=== PATIENT | male | born 1955 | race Caucasian/White ===

== ENCOUNTER 2018-09-21 14:05 | Emergency (ER) | payer MEDICAID ==
[~2018-09-21] VITALS: Wt 65.9 kg
[2018-09-21] MEDS ORDERED: SOD CHLORIDE 0.9% 1,000 ML IV STA (14:17)
[2018-09-21] MEDS ORDERED: ONDANSETRON 4 MG INJ IV STA (14:17)
[2018-09-21] MEDS ORDERED: IPRATROPIUM (NEB) 0.5 MG/2.5 ML AMP NEB STA (15:24)
[2018-09-21] MEDS ORDERED: ALBUTEROL 0.5% (NEB) 2.5 MG/0.5 ML AMP NEB STA (15:24)
[2018-09-21 17:50] VITALS: BP 125/86; PULSE 65; RESP 16
--- NOTE | 2018-09-21 18:04 | ERD ---
ER Documentation Chief Complaint Chief Complaint syncope at home s/p 2 teeth extractions HPI This is a 62-year-old male that presented to the emergency department after he had a brief transient loss of consciousness while standing just prior to arrival. This lasted for roughly 2 seconds and the patient had complete spontaneous recovery. He did hit his head on a carpeted surface during the syncope episode. The patient denies any shortness of breath. The patient had a procedure earlier today with extraction of 2 molars on the upper right side. He had underwent a significant amount of sedation but states he has not eaten for over 24 hours. He denies any chest pain. He denies a headache. He denies any neck pain. He has no shortness of breath at rest or exertion. He denies any recent travel or prolonged immobilization. ROS All systems reviewed and are negative except as per history of present illness. Allergies Allergies: Coded Allergies: No Known Allergy (Unverified , 09/21/18) PMhx/Soc Medical and Surgical Hx: pt denies Medical Hx, pt denies Surgical Hx History of Surgery: No Anesthesia Reaction: No Hx Neurological Disorder: No Hx Respiratory Disorders: No Hx Cardiac Disorders: No Hx Psychiatric Problems: No Hx Miscellaneous Medical Probl: No Hx Alcohol Use: No Hx Substance Use: No Hx Tobacco Use: No Smoking Status: Never smoker Physical Exam Vitals Vital Signs Date Temp Pulse Resp B/P (MAP) Pulse Ox O2 O2 Flow FiO2 Time Delivery Rate 09/21/18 57 16 124/75 100 Room Air 14:39 (91) 09/21/18 71/51 (58) 14:22 90/69 (76) 09/21/18 96.4 56 20 71/51 (58) 99 14:12 Physical Exam Constitutional:Well-developed. Well-nourished. HEENT:Normocephalic. Atraumatic.no nasal septal hematoma. No hemotympanum. Pupils were equal round reactive to light. Very dry mucous membranes.No tonsill ar exudates. Blood clot present in the right upper molar region from previous extraction of tooth #1 and 2. No blood present within the posterior pharynx. No trismus. Neck: No nuchal rigidity. No lymphadenopathy. No posterior cervical spine tenderness or step-offs. Respiratory: Not using accessory muscles of respiration.Lungs were clear to auscultation bilaterally. No rhonchi. No rales. No wheezing. Cardiovascular: Regular rate regular rhythm.No murmurs. No rubs were appreciated.S1, S2 normal. Distal pulses are palpable 2+ bilaterally. GI: Abdomen was soft. Nontender. Non Distended. No pulsatile abdominal masses or bruits. No rebound. No guarding. Bowel sounds were present and normal. Muscle skeletal: Full range of motion of both the upper and lower extremities bilaterally.Normal muscle tone.No assymetrical calf tenderness or swelling. Skin: No petechia, no purpura. No lesions on the palms or the soles of the feet. No maculopapular rash. NEURO: Patient was alert, awake, orientated x3.No facial droop. Gait observed and normal with no ataxia.Speech had regular rate and rhythm. No focal neurological deficits. Result Diagram: 09/21/18 1417 09/21/18 1417 Results 24 hrs Laboratory Tests Test 09/21/18 14:17 White Blood Count 13.4 10^3/ul Red Blood Count 4.18 10^6/ul Hemoglobin 12.0 g/dl Hematocrit 36.0 % Mean Corpuscular Volume 86.1 fl Mean Corpuscular Hemoglobin 28.7 pg Mean Corpuscular Hemoglobin Concent 33.3 g/dl Red Cell Distribution Width 13.2 % Platelet Count 278 10^3/UL Mean Platelet Volume 9.3 fl Immature Granulocytes % 0.300 % Neutrophils % 50.9 % Lymphocytes % 35.1 % Monocytes % 6.7 % Eosinophils % 6.4 % Basophils % 0.6 % Nucleated Red Blood Cells % 0.0 /100WBC Immature Granulocytes # 0.040 10^3/ul Neutrophils # 6.8 10^3/ul Lymphocytes # 4.7 10^3/ul Monocytes # 0.9 10^3/ul Eosinophils # 0.9 10^3/ul Basophils # 0.1 10^3/ul Nucleated Red Blood Cells # 0.0 10^3/ul Prothrombin Time 13.2 Sec Prothrombin Time Ratio 1.0 INR International Normalized Ratio 0.99 Activated Partial Thromboplast Time 21.9 Sec Sodium Level 140 mmol/L Potassium Level 3.6 mmol/L Chloride Level 106 mmol/L Carbon Dioxide Level 25 mmol/L Anion Gap 9 Blood Urea Nitrogen 13 mg/dl Creatinine 1.03 mg/dl Est Glomerular Filtrat Rate mL/min > 60 mL/min Glucose Level 190 mg/dl Calcium Level 9.0 mg/dl Total Bilirubin 0.3 mg/dl Direct Bilirubin 0.00 mg/dl Indirect Bilirubin 0.3 mg/dl Aspartate Amino Transf (AST/SGOT) 18 IU/L Alanine Aminotransferase (ALT/SGPT) 18 IU/L Alkaline Phosphatase 82 IU/L Troponin I < 0.012 ng/ml Total Protein 6.8 g/dl Albumin 3.8 g/dl Globulin 3.00 g/dl Albumin/Globulin Ratio 1.26 Current Medications Medications Dose Sig/Christin Start Time Status Last (Trade) Ordered Route PRN Stop Time Admin Dose Reason Admin Sodium 1,000 ml @ Q1H STAT 09/21/18 DC 09/21/18 Chloride 1,000 mls/hr IV 14:17 14:38 09/21/18 15:16 Ondansetron 4 mg ONCE STAT 09/21/18 DC 09/21/18 HCl (Zofran IV 14:17 14:37 Inj) 09/21/18 14:19 Albuterol 10 mg ONCE STAT 09/21/18 DC (Proventil NEB 15:24 0.5% (Neb)) 09/21/18 17:59 Ipratropium 0.5 mg ONCE STAT 09/21/18 DC Jasper NEB 15:24 (Atrovent 09/21/18 17:59 0.02% (Neb)) Procedures/MDM The patient presented to the emergency department with a transient loss of consciousness with loss of postural tone, suggestive of a syncope episode. The differential diagnosis of syncope is vast but my workup considered common benign disorders to life-threatening processes. Therefore my differential diagnosis included but was not limited to reflex-mediated syncope such as vasovagal or carotid sinus syncope from coughing, sneezing, micturition, or GI stimulation (eg, defecation). Other etiologies in my workup included orthostatic hypotension which could cause syncope from an abrupt drop in venous return to heart from volume depletion. An EKG and cardiac enzymes were obtained to rule out cardiac arrhythmias or ischemia. Cardiopulmonary disease such as valvular disease, hypertrophic cardiomyopathy, pericardial tamponade, or pulmonary embolism were considered as a factor causing the patients syncope episode. The patient had no difference in blood pressure in both arms that could suggest aortic dissection or subclavian steal syndrome. Rectal exam was negative for fecal occult blood that could suggest GI bleeding. Ancillary laboratory work was obtained to evaluate for metabolic or electrolyte abnormalities. The patient had no witne ssed brief tonic movements that could suggest postictal confusion. The patient was placed on a cardiac rehabilitation program director, continuous pulse oximetry and IV access established by nursing staff. The patient has severe hypotension with a systolic blood pressure of 70 mmHg. He immediately had 2 large-bore IV c atheters were placed and started with 2 L of normal saline. His blood pressure had improved. I obtained a CT scan the patient said there is no intracerebral hemorrhage mass- effect or midline shift. Chest radiograph showed no infiltrates or aspiration pneumonia. I obtained a 12-lead EKG tracing to rule out for atypical myocardial infarction. 12 Lead EKG tracing ordered and reviewed by myself showed: Normal sinus rhythm of 64 bpm and no arrhythmia. Left axis deviation NH interval normal. QRS duration normal. No ST segment elevation No ST segment depression. No changes consistent with acute ischemia. Observation Note: Time: 4 hours Family Hx: No Hypertension Evaluation: Multiple exams showed improving symptoms and no evidence of worsening of his symptoms. He is now ambulatory. He stated he had significant improvement of his symptoms. I did feel that this was a vasovagal syncope as the patient was positive for orthostatics. The patient was discharged home in fair condition. They were instructed to return to the emergency department at any time if there was any worsening of their condition. The patient stated they would follow up with their PCP in the next 24-48 hours to initiate a suitable medication regimen under the care of their PCP as well as to allow their PCP to monitor any drug reactions. The patient was discharged home with prescriptions after they gave informed consent to the new medication. They were also fully informed by myself on the adverse effects and adverse drug interactions in order to provide adequate safeguards to prevent possible adverse reactions to medications. Departure Diagnosis: Primary Impression: Vasovagal syncope Additional Impression: Hypotension Hypotension type: unspecified hypotension type Qualified Codes: I95.9 - Hypotension, unspecified Condition: Fair Patient Instructions: Syncope, Vasovagal RENATO VALERIO MD Sep 21, 2018 18:04
== END 2018-09-21 18:27 | disposition home or self-care (01) ==
LOC: E/R 14:05
DX: I95.9 Hypotension, unspecified (principal)
CPT/HCPCS: 70450; 71045; 80053; 84484; 85025; 85610; 85730; 93005; J2405; J7030; 36415; 96374

== ENCOUNTER 2019-01-27 18:44 | Emergency (ER) | payer MEDICAID ==
[~2019-01-27] VITALS: Ht 160 cm; Wt 66.0 kg
[2019-01-27 18:55] VITALS: Ht 160 cm; Wt 66.0 kg
[2019-01-27] MEDS ORDERED: SOD CHLORIDE 0.9% 1,000 ML IV ONE (21:00)
[2019-01-27 23:44] VITALS: BP 138/82; PULSE 65; RESP 18
== END 2019-01-27 23:53 | disposition home or self-care (01) ==
LOC: E/R 18:44
DX: R45.1 Restlessness and agitation (principal); R35.0 Frequency of micturition; R06.02 Shortness of breath; R07.9 Chest pain, unspecified
CPT/HCPCS: 36415; 71045; 80048; 81001; 82550; 84484; 85025; 93005; 96360; J7030; Z7502